=== PATIENT | female | born 1930 | race Caucasian/White ===

== ENCOUNTER 2017-12-04 19:50 | Inpatient (IN) ==
--- NOTE | 2017-12-04 19:58 | Emergency Department Note ---
Disposition Clinical Impression: Confusion, Renal insufficiency, Atrial fibrillation with RVR UTI (urinary tract infection) Qualifiers: Urinary tract infection type: acute cystitis Hematuria presence: without hematuria Qualified Code(s): N30.00 - Acute cystitis without hematuria Dementia Qualifiers: Dementia type: unspecified type Dementia behavioral disturbance: without behavioral disturbance Qualified Code(s): F03.90 - Unspecified dementia without behavioral disturbance Anemia Qualifiers: Anemia type: unspecified type Qualified Code(s): D64.9 - Anemia, unspecified Sepsis Qualifiers: Sepsis type: sepsis due to unspecified organism Qualified Code(s): A41.9 - Sepsis, unspecified organism Disposition: Admitted As Inpatient Condition: Fair Referrals: Tiera Rojas AGRICULTURAL SERVICES DIRECTOR [Primary Care Provider] - Forms: ED Satisfaction Letter Weakness HPI - General Chief complaint: ED Weakness Stated complaint: confused, weak, dizzy Time Seen by Provider: 12/04/17 19:56 Source: patient, EMS Mode of arrival: EMS Limitations: altered mental status, age Nursing Notes Reviewed: Yes Vital Signs Reviewed: Yes - History of Present Illness HPI Narrative: Patient is brought in by EMS with a report of some increased weakness and dizziness. There is concern that this could because of a urinary tract infection and she has had some similar symptoms. She arrives and has some confusion to place and date but is alert to person. She denies any frequency or burning of urination. She denies abdominal pain or abnormal bowel movements. She appears somewhat pale but denies bloody or black stools. She denies nausea or vomiting. She denies chest pain, palpitations or shortness of breath but does state she has had some nonproductive cough. She states she might of been having some headache and admits to a feeling of confusion. She has not had recent fall or injury. She is on anticoagulants per old record. She denies any difficulty with vision. Pt Subjective Complaint: generalized weakness/fatigue Onset (ago): unknown Location: generalized Pain Severity: mild Improves with: none Worsens with: none Context: history of similar Associated symptoms: Reports: confusion, headaches, loss of appetite. Denies: chest pain, dark stools, diaphoresis, dysuria, easy bruising, fever/chills, nausea/vomiting, myalgias, rash, shortness of breath, syncope - Related Data Home Medications Medication Instructions Recorded Confirmed Albuterol Sulfate [Albuterol 2.5 mg IH Q6HR 12/04/17 12/04/17 Inhaler] Apixaban [Eliquis] 5 mg PO BID 12/04/17 12/04/17 Aspirin [Lo-Dose Aspirin EC] 81 mg PO DAILY 12/04/17 12/04/17 Budesonide/Formoterol 160/4.5 2 puff IH BIDR 12/04/17 12/04/17 [Symbicort 160/4.5] Bumetanide [Bumetanide] 0.5 mg PO HS 12/04/17 12/04/17 Bumetanide [Bumex] 1 mg PO DAILY 12/04/17 12/04/17 Cholecalciferol (Vitamin D3) 2,000 mg PO DAILY 12/04/17 12/04/17 [Vitamin D3] Diltiazem CD (24hr) [Cardizem CD] 120 mg PO DAILY 12/04/17 12/04/17 Donepezil HCl [Aricept] 10 mg PO DAILY 12/04/17 12/04/17 Escitalopram [Lexapro] 20 mg PO DAILY 12/04/17 12/04/17 Ipratropium/Albuterol Neb [Duoneb] 3 mg QID 12/04/17 12/04/17 Levothyroxine Sodium [Levoxyl] 75 mcg PO DAILY 12/04/17 12/04/17 Metformin HCl [Fortamet] 500 mg PO BID 12/04/17 12/04/17 Oxybutynin Chloride [Ditropan Xl] 10 mg PO DAILY 12/04/17 12/04/17 Raloxifene [Evista] 60 mg PO DAILY 12/04/17 12/04/17 Simvastatin [Zocor] 40 mg PO DAILY 12/04/17 12/04/17 glipiZIDE [Glucotrol] 5 mg PO DAILY 12/04/17 12/04/17 Allergies Allergy/AdvReac Type Severity Reaction Status Date / Time Erythromycin Base Allergy Rash Verified 10/30/17 12:13 Penicillins Allergy Rash Verified 10/30/17 12:13 Sulfa (Sulfonamide Allergy Rash Verified 10/30/17 12:13 Antibiotics) All systems ED: reviewed and negative except as stated. Past Medical History - Past Medical History Attestation: Yes The following information was validated with the patient. Source: patient, old records reviewed, obtained from family, nursing notes reviewed Medical history: Reports: atrial fibrillation, cancer (Lung cancer), cardiomyopathy, COPD, dementia, diabetes, hyperlipidemia, renal disease Surgical history: Reports: cancer surgery (Left lower lobe cancer resection), cholecystectomy, hip replacement, hysterectomy, orthopedic, other (Bilateral knee replacement), other Psychiatric history: Reports: no psych history BARGEMAN history: Reports: no BARGEMAN history - Social History Smoking Status: Former smoker Smokeless Tobacco Status: No Alcohol use: Reports: none Drug use: Reports: none, unknown Physical Exam - General Limitations: altered mental status, age General appearance: alert, in no apparent distress, anxious - Head Head exam: atraumatic, normocephalic, normal inspection - Eye Eye exam: Present: normal appearance, PERRL, EOMI. Absent: conjunctival injection - ENT ENT exam: normal exam, normal oropharynx, mucous membranes moist - Neck Neck exam: Present: normal inspection, full ROM, trachea midline. Absent: meningismus, lymphadenopathy - Chest Chest inspection: Present: normal inspection, symmetric chest wall rise. Absent : tenderness - Respiratory Respiratory exam: Present: normal lung sounds bilaterally, other (Occasional cough.). Absent: respiratory distress, wheezes, prolonged expiratory phase - Cardiovascular Cardiovascular exam: Present: regular rate, normal rhythm, normal heart sounds. Absent: tachycardia, JVD - Abdominal Exam Abdominal exam: Present: soft, Non-Tender, normal bowel sounds. Absent: tenderness, distention, guarding, rebound, rigidity Abdominal tenderness: Absent: suprapubic - Extremities Exam Extremities exam: Present: normal inspection, full ROM, normal capillary refill. Absent: tenderness, pedal edema, calf tenderness - Expanded Lower Extremity Exam Neurovascular/Tendon exam: Present: normal capillary refill. Absent: motor deficit, sensory deficit, tendon deficit Gait: observed and normal - Back Exam Back exam: Present: normal inspection, full ROM. Absent: tenderness, CVA tenderness (R), CVA tenderness (L), vertebral tenderness - Neurological Exam Neurological exam: Present: alert. Absent: oriented X3 (Oriented to person), motor sensory deficit - Psychiatric Psychiatric exam: Present: normal affect, anxious - Skin Skin exam: Present: warm, dry, intact, pallor. Absent: rash, cyanosis, diaphoresis Course Course Narrative: 2100: Care is discussed with the family and Dr. Howell. Verbal orders are obtained for her observation is patient of hospital. Her fluids have been liberalized given her elevated lactic acid. She will continue on Rocephin. Patient's condition is currently stable. She has a heart rate remaining around 110, blood pressure 9200 systolic, afebrile and without dyspnea. She is not have rales or rhonchi and she has a regular tachycardic rhythm on auscultation. She maintains good capillary refill and pulses. She denies have any skin rash or breakdown. Vital Signs Temperature 99 F 12/04/17 20:09 Pulse Rate 90 12/04/17 20:09 Respiratory Rate 20 12/04/17 20:09 Blood Pressure 109/54 12/04/17 20:09 O2 Sat by Pulse Oximetry 95 12/04/17 20:09 Temperature 99 F 12/04/17 20:09 Pulse Rate 90 12/04/17 20:09 Respiratory Rate 20 12/04/17 20:09 Blood Pressure 109/54 12/04/17 20:09 O2 Sat by Pulse Oximetry 95 12/04/17 20:09 Oxygen Delivery Oxygen Delivery Nasal Cannula Weakness - Differential Diagnosis Differential Diagnosis: Likely: anemia, hypoglycemia, sepsis/infection, dehydration, medication effect, metabolic - Medical Records Medical records reviewed: Yes I reviewed the patient's medical records. - Lab Data Lab results reviewed: Yes I reviewed the patient's lab results. Result diagrams: 12/04/17 20:24 12/04/17 20:24 Lab Results 12/04/17 12/04/17 12/04/17 Range/Units 20:16 20:24 20:24 WBC 11.6 H (4.3-11.1) K/mcL RBC 3.52 L (3.82-4.97) M/mcL Hgb 7.5 L (11.5-15.4) g/dL Hct 25.9 L (35.3-44.9) % MCV 73.6 L (83.0-100.0) fL MCH 21.3 L (28.0-33.3) pg MCHC 29.0 L (31.6-35.5) g/dL RDW 17.6 H (11.5-14.5) % Plt Count 196 (140-400) K/mcL MPV 9.2 L (9.4-12.4) fL Immature Gran % 0.5 (0-4) % Seg Neutrophils % 88.4 % Lymphocytes % 5.3 % Monocytes % 4.8 % Eosinophils % 0.7 % Basophils % 0.3 % Neutrophils # 10.3 H (1.6-8.9) K/mcL Lymphocytes # 0.6 (0.6-4.6) K/mcL Monocytes # 0.6 (0.0-1.3) K/mcL Eosinophils # 0.1 (0.0-0.6) K/mcL Basophils # 0.0 (0.0-0.2) K/mcL Sodium 137 (136-145) mEq/L Potassium 4.1 (3.5-5.1) mEq/L Chloride 99 (98-107) mEq/L Carbon Dioxide 26 (23-29) mEq/L BUN 25 H (8-23) mg/dL Creatinine 1.55 H (0.60-1.20) mg/dL Est GFR ( Amer) 39 L (> 60) Est GFR (Non-Af Amer) 32 L (> 60) BUN/Creatinine Ratio 16 (6-26) Glucose 187 H (70-105) mg/dL Calculated Osmolality 293 (280-300) Lactic Acid (0.5-2.2) mmol/L Calcium 9.2 (8.6-10.3) mg/dL Total Bilirubin 0.4 (0.3-1.0) mg/dL AST 10 L (13-39) Units/L ALT 4 L (7-52) Units/L Alkaline Phosphatase 41 (34-104) Units/L Troponin I < 0.03 (< 0.04) ng/mL Serum Total Protein 6.2 L (6.4-8.9) g/dL Albumin 3.4 L (3.5-5.7) g/dL Globulin 2.8 (2.4-3.5) g/dL Albumin/Globulin Ratio 1.2 (1.1-2.2) Urine Color Yellow (Yellow) Urine Clarity Cloudy A (Clear) Urine pH 5.5 (5.0-8.0) pH Units Ur Specific [place] 1.020 (1.010-1.025) Urine Protein 100 H (Neg-Trace) mg/dL Urine Glucose (UA) Normal (Normal) mg/dL Urine Ketones Negative (Negative) mg/dL Urine Blood Moderate H (Negative) Urine Nitrite Negative (Negative) Urine Bilirubin Negative (Negative) Urine Urobilinogen Normal (Normal) mg/dL Ur Leukocyte Esterase Large H (Negative) Urine Microscopic RBC 5-15 H (0-3) per hpf Urine Microscopic WBC TNTC H (0-3) per hpf Urine Bacteria Few (None-Few) per hpf Ur Culture Indicated? YES A (NO) 12/04/17 Range/Units 20:24 WBC (4.3-11.1) K/mcL RBC (3.82-4.97) M/mcL Hgb (11.5-15.4) g/dL Hct (35.3-44.9) % MCV (83.0-100.0) fL MCH (28.0-33.3) pg MCHC (31.6-35.5) g/dL RDW (11.5-14.5) % Plt Count (140-400) K/mcL MPV (9.4-12.4) fL Immature Gran % (0-4) % Seg Neutrophils % % Lymphocytes % % Monocytes % % Eosinophils % % Basophils % % Neutrophils # (1.6-8.9) K/mcL Lymphocytes # (0.6-4.6) K/mcL Monocytes # (0.0-1.3) K/mcL Eosinophils # (0.0-0.6) K/mcL Basophils # (0.0-0.2) K/mcL Sodium (136-145) mEq/L Potassium (3.5-5.1) mEq/L Chloride (98-107) mEq/L Carbon Dioxide (23-29) mEq/L BUN (8-23) mg/dL Creatinine (0.60-1.20) mg/dL Est GFR ( Amer) (> 60) Est GFR (Non-Af Amer) (> 60) BUN/Creatinine Ratio (6-26) Glucose (70-105) mg/dL Calculated Osmolality (280-300) Lactic Acid 5.5 H* (0.5-2.2) mmol/L Calcium (8.6-10.3) mg/dL Total Bilirubin (0.3-1.0) mg/dL AST (13-39) Units/L ALT (7-52) Units/L Alkaline Phosphatase (34-104) Units/L Troponin I (< 0.04) ng/mL Serum Total Protein (6.4-8.9) g/dL Albumin (3.5-5.7) g/dL Globulin (2.4-3.5) g/dL Albumin/Globulin Ratio (1.1-2.2) Urine Color (Yellow) Urine Clarity (Clear) Urine pH (5.0-8.0) pH Units Ur Specific [place] (1.010-1.025) Urine Protein (Neg-Trace) mg/dL Urine Glucose (UA) (Normal) mg/dL Urine Ketones (Negative) mg/dL Urine Blood (Negative) Urine Nitrite (Negative) Urine Bilirubin (Negative) Urine Urobilinogen (Normal) mg/dL Ur Leukocyte Esterase (Negative) Urine Microscopic RBC (0-3) per hpf Urine Microscopic WBC (0-3) per hpf Urine Bacteria (None-Few) per hpf Ur Culture Indicated? (NO) - Radiology Data Radiology results reviewed: Yes I reviewed the patient's radiology results. Single view chest x-rays performed. This does not demonstrate acute infiltrate , effusion, pneumothorax or heart failure. She has stable volume loss and scarring of the left lung in comparison to prior imaging. No acute processes seen. This is on my interpretation. CT head is performed. This is reviewed on bone and soft tissue windows. There is no evidence for acute intracranial bleed, shift, mass or edema. Patient has cerebral atrophy present. Mastoids and sinuses appear normal. There is no fracture evident. This is on my interpretation. Impressions Chest X-Ray 12/04/17 19:56 IMPRESSION: 1. No acute process identified. 2. Stable volume loss and linear density within the left lung likely secondary to postsurgical and radiation change. D/ / Tom Pang MD / Tom Pang MD Interpreting Provider: Tom Pang MD Head CT 12/04/17 19:57 IMPRESSION: No acute intracranial abnormality. D/ / Dalton Donnelly MD / Dalton Donnelly MD Interpreting Provider: Dalton Donnelly MD - EKG Data EKG shows normal: axis, intervals, QRS complexes Rate: tachycardia (128) Rhythm: A.Fib ST segment depression in: v4, v5, v6 T wave inversions noted in: I, aVL Interpretation: nonspecific ST-T wave changes, other
[2017-12-04] MEDS ORDERED: 0.9 % Sodium Chloride 500 ML IVC ONE ×3 (20:25→23:16)
[2017-12-04 20:29] LABS: Bilirubin,Urine Negative (Negative); Blood,Urine Moderate (Negative); Clarity,Urine Cloudy (Clear); Color,Urine Yellow (Yellow); Glucose,Urine (UA) Normal (Normal); Ketones,Urine Negative (Negative); Leukocyte Esterase,Urine Large (Negative); Nitrite,Urine Negative (Negative); PH,Urine 5.5 pH Units (5.0-8.0); Protein,Urine 100 mg/dL (Neg-Trace); Urobilinogen,Urine Normal (Normal)
[2017-12-04] MEDS ORDERED: 0.9 % Sodium Chloride 1,000 ML IVC SCH ×2 (20:30→23:16)
[2017-12-04 20:36] LABS: Basophils % 0.3 %; Eosinophils # 0.1 K/mcL (0.0-0.6); Eosinophils % 0.7 %; Hematocrit 25.9 % (35.3-44.9); Hemoglobin 7.5 g/dL (11.5-15.4); Immature Granulocytes % 0.5 % (0-4); Lymphocytes # 0.6 K/mcL (0.6-4.6); Lymphocytes % 5.3 %; Mean Corpuscular Hemoglobin 21.3 pg (28.0-33.3); Mean Corpuscular Volume 73.6 fL (83.0-100.0); Mean Platelet Volume 9.2 fL (9.4-12.4); Monocytes # 0.6 K/mcL (0.0-1.3); Monocytes % 4.8 %; Platelet Count 196 K/mcL (140-400); Red Blood Count 3.52 M/mcL (3.82-4.97); Red Cell Distribution Width 17.6 % (11.5-14.5); Segmented Neutrophils % 88.4 %
[2017-12-04 20:36] LABS: Bacteria,Urine Few per hpf (None-Few); WBC,Urine TNTC per hpf (0-3)
[2017-12-04] MEDS ORDERED: cefTRIAXone 2,000 MG in 0.9 % Sodium Chloride Mini Bag 100 ML IVPB ONE (20:39)
[2017-12-04 20:46] LABS: Neutrophils # 10.3 K/mcL (1.6-8.9)
[2017-12-04 20:55] LABS: Alanine Aminotransferase 4 Units/L (7-52); Albumin 3.4 g/dL (3.5-5.7); Albumin/Globulin Ratio 1.2 (1.1-2.2); Alkaline Phosphatase 41 Units/L (34-104); Aspartate Amino Transferase 10 Units/L (13-39); BUN/Creatinine Ratio 16 (6-26); Bilirubin,Total 0.4 mg/dL (0.3-1.0); Blood Urea Nitrogen 25 mg/dL (8-23); Calcium 9.2 mg/dL (8.6-10.3); Carbon Dioxide 26 mEq/L (23-29); Chloride 99 mEq/L (98-107); Globulin 2.8 g/dL (2.4-3.5); Glucose 187 mg/dL (70-105); Osmolality,Calculated 293 (280-300); Potassium 4.1 mEq/L (3.5-5.1); Sodium 137 mEq/L (136-145); Total Protein 6.2 g/dL (6.4-8.9); Troponin I < 0.03 ng/mL (< 0.04); eGFR For African Americans 39 (> 60); eGFR For Non-African Americans 32 (> 60)
[2017-12-04] MEDS ORDERED: 0.9 % Sodium Chloride 1,000 ML IVC ONE (21:06)
[2017-12-04] MEDS ORDERED: Ipratropium/Albuterol Neb 3 ML IH PRN (23:16)
[2017-12-04] MEDS ORDERED: Dextrose Gel 15 GM/37.5 ML TUBE PO PRN ×2 (23:16)
[2017-12-04] MEDS ORDERED: D5% in Water 1,000 ML IVC PRN (23:16)
[2017-12-04] MEDS ORDERED: *HR* Dextrose 50 % in Water (Syg) 50 ML SYRINGE IVP PRN (23:16)
[2017-12-04] MEDS ORDERED: cefTRIAXone 2,000 MG in Water for inj. (sterile) 20 ML 20 ML IVP SCH (23:16)
[2017-12-04] MEDS ORDERED: Naloxone 0.4 MG/ML INJ IVP PRN (23:16)
[2017-12-05] MEDS: Insulin LISPRO 300 UNITS/3 ML VIAL SQ SCH ×3 (07:22→17:00)
[2017-12-05] MEDS ORDERED: Aspirin Enteric Coated 81 MG Tablet PO SCH (09:00)
[2017-12-05] MEDS ORDERED: cefTRIAXone 2,000 MG in Water for inj. (sterile) 20 ML 20 ML IVP SCH (09:00)
[2017-12-05] MEDS ORDERED: Diltiazem CD (24hr) 120 MG CAPSULE PO SCH (09:00)
[2017-12-05] MEDS ORDERED: *HR* Metformin 500 MG TABLET PO SCH (09:00)
[2017-12-05] MEDS: Azithromycin 500 MG in D5% in Water 250 ML IVPB SCH (09:10)
[2017-12-05] MEDS: Bumetanide 1 MG TABLET PO SCH (09:10)
[2017-12-05] MEDS: Apixaban 5 MG TABLET PO SCH ×2 (09:10→20:41)
[2017-12-05] MEDS: Budesonide/Formoterol 160/4.5 MDI IH SCH ×2 (10:53→21:26)
--- NOTE | 2017-12-05 11:38 | Internal Med History&Physical ---
Date of Encounter: 12/05/17 Time of Encounter: 11:10 Assessment and Plan (1) UTI (urinary tract infection) Current visit: Yes Status: Acute She has been started on Rocephin and Zithromax. Will continue these and add lactobacillus. Urine culture has been ordered. Qualifiers: Urinary tract infection type: acute cystitis Hematuria presence: without hematuria Qualified Code(s): N30.00 - Acute cystitis without hematuria (2) Atrial fibrillation with RVR Current visit: Yes Status: Acute Continue Eliquis but hold Cardizem secondary to borderline hypotension. Recheck CBC and transfuse if hemoglobin less than 7. (3) Dementia Current visit: Yes Status: Chronic Will do MMSE. Qualifiers: Dementia type: unspecified type Dementia behavioral disturbance: without behavioral disturbance Qualified Code(s): F03.90 - Unspecified dementia without behavioral disturbance (4) Anemia Current visit: Yes Status: Acute Suspect iron deficiency from blood loss secondary to aspirin and Eliquis use. Will hold aspirin and order anemia testing. Qualifiers: Anemia type: unspecified type Qualified Code(s): D64.9 - Anemia, unspecified (5) Non-insulin dependent type 2 diabetes mellitus Current visit: No Status: Chronic Hemoglobin A1c was 7.4% on 07/13/2017. Continue Glucotrol and Glucophage. Monitor Accu-Cheks with SSI. (6) HTN (hypertension) Current visit: No Status: Chronic Blood pressure borderline low. Will hold Cardizem and Bumex and give IV fluids. Qualifiers: Hypertension type: essential hypertension Qualified Code(s): I10 - Essential (primary) hypertension (7) CKD (chronic kidney disease) stage 3, GFR 30-59 ml/min Current visit: Yes Status: Acute Will decrease Bumex and give IV fluids. Monitor renal indices. (8) CHF (congestive heart failure) Current visit: Yes Status: Chronic Continue Bumex but at reduced dose secondary to azotemia. Qualifiers: Heart failure type: diastolic Heart failure chronicity: chronic Qualified Code(s): I50.32 - Chronic diastolic (congestive) heart failure Internal Medicine - H&P: HPI Chief complaint: Weakness, confusion Admitted From: Emergency Dept Plans for Post Hospital Care: Home History of present illness: Ms. Benites is a 87 year old female who was brought to emergency room by squad after family reported increased weakness and dizziness. She could not give significant history because of dementia. She was evaluated and felt to have UTI , significant anemia, and sepsis. She was admitted to [facility] floor for ongoing care needs. She cannot give additional reliable history at this time. Past Med Surg Social Fam HX - Past Medical History Medical history: atrial fibrillation, cancer, cardiomyopathy, COPD, dementia, diabetes, hyperlipidemia, renal disease Psychiatric history: no psych history - Past Surgical History Surgical History: cancer surgery, cholecystectomy, hip replacement, hysterectomy , orthopedic, other, other - Social History Smoking Status: Former smoker Smokeless Tobacco Status: No Alcohol use: none Drug use: none, unknown - Family History Father Adopted: Yes Mother Adopted: Yes Brother Adopted: Yes Sister Adopted: Yes Internal Medicine - H&P: Meds Albuterol Sulfate [Albuterol Inhaler] 2.5 mg IH Q6HR 12/04/17 [History] Albuterol Sulfate [Proair Hfa] 1 puff IH Q4H PRN 12/04/17 [History] Apixaban [Eliquis] 5 mg PO BID 12/04/17 [History] Aspirin [Lo-Dose Aspirin EC] 81 mg PO DAILY 12/04/17 [History] Budesonide/Formoterol 160/4.5 [Symbicort 160/4.5] 2 puff IH BID 12/04/17 [ History] Bumetanide [Bumetanide] 0.5 mg PO HS 12/04/17 [History] Bumetanide [Bumex] 1 mg PO DAILY 12/04/17 [History] Cholecalciferol (Vitamin D3) [Vitamin D3] 2,000 mg PO DAILY 12/04/17 [History] Diltiazem CD (24hr) [Cardizem CD] 120 mg PO DAILY 12/04/17 [History] Donepezil HCl [Aricept] 10 mg PO DAILY 12/04/17 [History] Escitalopram [Lexapro] 20 mg PO DAILY 12/04/17 [History] Ipratropium/Albuterol Neb [Duoneb] 3 mg IH QID PRN 12/04/17 [History] Levothyroxine Sodium [Levoxyl] 75 mcg PO DAILY 12/04/17 [History] Metformin HCl [Fortamet] 500 mg PO BID 12/04/17 [History] Oxybutynin Chloride [Ditropan Xl] 10 mg PO DAILY 12/04/17 [History] Raloxifene [Evista] 60 mg PO DAILY 12/04/17 [History] Simvastatin [Zocor] 40 mg PO DAILY 12/04/17 [History] Spiriva Respimat 1.25 mcg IH DAILY 12/04/17 [History] glipiZIDE [Glucotrol] 5 mg PO DAILY 12/04/17 [History] 3 Allergy/AdvReac Type Severity Reaction Status Date / Time Erythromycin Base Allergy Rash Verified 10/30/17 12:13 Penicillins Allergy Rash Verified 10/30/17 12:13 Sulfa (Sulfonamide Allergy Rash Verified 10/30/17 12:13 Antibiotics) All Systems PM: A 10-system review of systems was performed and is negative for pertinent findings except as documented above in the HPI. Review of systems: (Review of systems obtained from available records Gen.: Her weight has been stable at approximately 80 kg for several months Cardiovascular: She has history of hypertension and paroxysmal atrial fibrillation. There is no known [place] heart failure DVT or pulmonary embolus. She had an echocardiogram 04/21/2017 which showed LVEF of 55%. There was mild to moderate tricuspid regurgitation but no other significant valvular abnormalities. She is taking Eliquis for CVA prophylaxis for atrial fibrillation. Respiratory: She smoked from age [age] up to 2 packs per day. She has a diagnosis of COPD. 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 She had left lower lobe resection approximate 2009 for malignancy followed by XRT and chemotherapy. She is presumed cancer free. GI: She had colitis requiring hospitalization March 2017. There is no known disorders of liver gallbladder or exocrine pancreas : She has had UTIs in the past. She has chronic kidney disease and has followed with a arch support technician in the past. Neurologic: She has dementia. There are no known large distribution strokes or seizures. Endocrine: She was diagnosed with DM 2 approximately 2006. She has hypothyroidism and hyperlipidemia. Hematology/oncology: She has had lung cancer as per above. She is had anemia noted on labs since September 2017. There are no other internal malignancies or blood disorders. 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 She does not have known gout. - Constitutional Vitals: Temp Pulse Resp BP Pulse Ox 98.2 F 73 17 92/56 95 12/05/17 10:00 12/05/17 10:00 12/05/17 10:00 12/05/17 10:00 12/05/17 10:00 Exam: Gen.: She is a well-developed well-nourished female resting comfortably in bed who appears in no acute distress at present time HEENT: Head is atraumatic and normal cephalic. Eyes: EOMI. There is no scleral icterus. Mouth: Mucosa is moist. Neck: Supple and nontender. There is no thyromegaly or adenopathy noted. Heart: Irregularly irregular with rate approximately 112/m. Lungs: She has rhonchi bilaterally. No wheezing is heard. Breath sounds are symmetric. Abdomen: Soft and nontender. No masses or guarding are noted. Extremities: There is no cyanosis edema or clubbing noted. Dorsalis pedis and posttibial pulses are trace palpable bilaterally. Neurologic: Mental status: She is able to answer simple questions with short answers. She is not conversational. Cranial nerves: Smile is symmetric. Forehead wrinkles bilaterally. Tongue protrudes midline. EOMI. Motor: There is no pronator drift. She is able to lift both legs off the bed. Cerebellar: Finger to nose is intact bilaterally. Skin: Warm and dry Internal Med - H&P Results - Labs CBC & Chem 7: 12/04/17 20:24 12/04/17 20:24
[2017-12-05] MEDS: *HR* GlipiZIDE 5 MG TABLET PO SCH (12:59)
[2017-12-05 13:05] LABS: Basophils % 0.3 %; Eosinophils # 0.4 K/mcL (0.0-0.6); Eosinophils % 5.3 %; Hematocrit 22.7 % (35.3-44.9); Hemoglobin 6.6 g/dL (11.5-15.4); Immature Granulocytes % 0.5 % (0-4); Lymphocytes # 1.5 K/mcL (0.6-4.6); Lymphocytes % 22.7 %; Mean Corpuscular HGB Conc 29.1 g/dL (31.6-35.5); Mean Corpuscular Hemoglobin 21.6 pg (28.0-33.3); Mean Corpuscular Volume 74.4 fL (83.0-100.0); Mean Platelet Volume 10.1 fL (9.4-12.4); Monocytes # 0.4 K/mcL (0.0-1.3); Monocytes % 6.1 %; Neutrophils # 4.3 K/mcL (1.6-8.9); Platelet Count 169 K/mcL (140-400); Red Blood Count 3.05 M/mcL (3.82-4.97); Red Cell Distribution Width 17.8 % (11.5-14.5); Segmented Neutrophils % 65.1 %
--- NOTE | 2017-12-05 16:19 | Electrocardiograph Report ---
[address] [place], [place] [address] Test Date: 2017-12-04 Pat Name: Bianca Benites Department: [id number] Room: [facility] Gender: F Manager [employer]: [id number] : 1930 Requested By: Julio Cesar Adair Order Number: [id number] Reading MD: Mariam Syed Measurements Intervals [place] Rate: 128 P: TX: 0 QRS: -58 QRSD: 110 T: 108 QT: 336 QTc: 412 Interpretive Statements ATRIAL FIBRILLATION WITH RAPID VENTRICULAR RESPONSE LEFT ANTERIOR FASCICULAR BLOCK ST DEVIATION AND MODERATE T-WAVE ABNORMALITY, CONSIDER LATERAL ISCHEMIA Electronically Signed On 12-05-2017 16:17:59 EDT by Mariam Syed
[2017-12-05] MEDS: Lactobacillus 1 EACH CAP.SPRINK PO SCH (20:41)
[2017-12-05] MEDS: cefTRIAXone 2,000 MG in Water for inj. (sterile) 20 ML 20 ML IVP SCH (20:42)
[2017-12-05] MEDS ORDERED: Bumetanide 1 MG TABLET PO SCH (21:00)
[2017-12-06 05:43] LABS: Basophils % 0.4 %; Eosinophils # 0.6 K/mcL (0.0-0.6); Eosinophils % 8.8 %; Hematocrit 24.5 % (35.3-44.9); Immature Granulocytes % 0.3 % (0-4); Lymphocytes # 1.6 K/mcL (0.6-4.6); Lymphocytes % 23.3 %; Mean Corpuscular HGB Conc 28.6 g/dL (31.6-35.5); Mean Corpuscular Hemoglobin 21.1 pg (28.0-33.3); Mean Platelet Volume 9.7 fL (9.4-12.4); Monocytes # 0.5 K/mcL (0.0-1.3); Monocytes % 6.5 %; Neutrophils # 4.2 K/mcL (1.6-8.9); Platelet Count 181 K/mcL (140-400); Red Blood Count 3.31 M/mcL (3.82-4.97); Red Cell Distribution Width 17.5 % (11.5-14.5); Segmented Neutrophils % 60.7 %
[2017-12-06 06:42] LABS: Hypochromasia Present (Not Present); Platelet Estimate Normal (Normal)
[2017-12-06] MEDS: Azithromycin 500 MG in D5% in Water 250 ML IVPB SCH (08:23)
[2017-12-06] MEDS: Bumetanide 1 MG TABLET PO SCH (08:23)
[2017-12-06] MEDS: Lactobacillus 1 EACH CAP.SPRINK PO SCH ×2 (08:23→21:19)
[2017-12-06] MEDS: *HR* GlipiZIDE 5 MG TABLET PO SCH (08:23)
[2017-12-06] MEDS: Apixaban 5 MG TABLET PO SCH ×2 (08:28→21:21)
[2017-12-06] MEDS: Insulin LISPRO 300 UNITS/3 ML VIAL SQ SCH ×3 (08:30→17:23)
[2017-12-06 09:10] LABS: % Iron Saturation 3 % (15-50); Ferritin 15 ng/ml (10-120); Iron 10 mcg/dL (50-170); Transferrin 253 mg/dL (203-362)
[2017-12-06 09:36] LABS: Folate 19.4 ng/mL (3.0-16.0)
[2017-12-06] MEDS: Budesonide/Formoterol 160/4.5 MDI IH SCH ×2 (09:42→21:43)
--- NOTE | 2017-12-06 10:14 | Internal Med Progress Note ---
Date of Encounter: 12/06/17 Time of Encounter: 10:05 - Assessment and plan (1) UTI (urinary tract infection) Current Visit: Yes Status: Acute Assessment and plan: December 06. Urine culture report not back. Continue empiric Rocephin and Zithromax with lactobacillus. Qualifiers: Urinary tract infection type: acute cystitis Hematuria presence: without hematuria Qualified Code(s): N30.00 - Acute cystitis without hematuria (2) Atrial fibrillation with RVR Current Visit: Yes Status: Acute Assessment and plan: December 06. Continue Eliquis. Will order blood transfusion to increase volume and slow RVR. (3) Dementia Current Visit: Yes Status: Chronic Assessment and plan: December 06. MMSE not yet done. Qualifiers: Dementia type: unspecified type Dementia behavioral disturbance: without behavioral disturbance Qualified Code(s): F03.90 - Unspecified dementia without behavioral disturbance (4) Anemia Current Visit: Yes Status: Acute Assessment and plan: December 06. Anemia testing showed iron 10, transferrin saturation 3%, transferrin 253, ferritin 15, B12 188, and folate 19.4. Will give B12 IM today and start oral supplement. Will order iron infusion. Qualifiers: Anemia type: unspecified type Qualified Code(s): D64.9 - Anemia, unspecified (5) Non-insulin dependent type 2 diabetes mellitus Current Visit: No Status: Chronic Assessment and plan: December 06. Hemoglobin A1c was 7.4% on 07/13/2017. Continue Glucotrol. Glucophage was discontinued because of renal function. Do Accu-Cheks with SSI. (6) HTN (hypertension) Current Visit: No Status: Chronic Assessment and plan: December 06. Continue to hold Cardizem and give IV fluids. Qualifiers: Hypertension type: essential hypertension Qualified Code(s): I10 - Essential (primary) hypertension (7) CKD (chronic kidney disease) stage 3, GFR 30-59 ml/min Current Visit: Yes Status: Acute Assessment and plan: December 06. Continue IV fluids and monitor renal indices. (8) CHF (congestive heart failure) Current Visit: Yes Status: Chronic Assessment and plan: December 06. Continue lower dose Bumex and monitor Qualifiers: Heart failure type: diastolic Heart failure chronicity: chronic Qualified Code(s): I50.32 - Chronic diastolic (congestive) heart failure - Subjective Interval history: May 17. She has no new complaints. - Constitutional Vitals: Temp Pulse Resp BP Pulse Ox 98 F 65 16 90/61 95 12/06/17 06:23 12/06/17 06:23 12/06/17 09:46 12/06/17 06:23 12/06/17 09:46 Exam: She is resting comfortably in bed and appears in no acute distress. Her affect is cheerful. Heart is irregularly irregular with rate approximately 100/m. Lungs are clear anteriorly. Extremities show no pitting edema. I reviewed her medications. I discussed pertinent lab results with her. Internal Medicine: Result - Labs CBC & Chem 7: 12/06/17 05:26 12/04/17 20:24 Labs: Short CBC 12/05/17 12/06/17 Range/Units 12:55 05:26 WBC 6.6 7.0 (4.3-11.1) K/mcL Hgb 6.6 L 7.0 L (11.5-15.4) g/dL Hct 22.7 L 24.5 L (35.3-44.9) % Plt Count 169 181 (140-400) K/mcL Neutrophils # 4.3 4.2 (1.6-8.9) K/mcL Consult Discharge Plan - Plan Referrals: Tiera Rojas, DO ALL OPERATOR [Primary Care Provider] - 1 week
[2017-12-06] MEDS ORDERED: Iron Dextran Complex 1,500 MG in 0.9 % Sodium Chloride 500 ML IVPB ONE (10:18)
[2017-12-06] MEDS ORDERED: Cyanocobalamin (B-12) 1,000 MCG/ML VIAL IM ONE ×2 (10:19→17:30)
[2017-12-06] MEDS ORDERED: Iron Sucrose Complex 400 MG in 0.9 % Sodium Chloride 250 ML IVPB ONE (10:53)
[2017-12-06] MEDS: cefTRIAXone 2,000 MG in Water for inj. (sterile) 20 ML 20 ML IVP SCH (21:17)
[2017-12-07 07:47] LABS: Basophils % 0.7 %; Eosinophils # 0.6 K/mcL (0.0-0.6); Eosinophils % 10.8 %; Hematocrit 26.3 % (35.3-44.9); Hemoglobin 7.6 g/dL (11.5-15.4); Immature Granulocytes % 0.2 % (0-4); Lymphocytes # 1.2 K/mcL (0.6-4.6); Lymphocytes % 21.2 %; Mean Corpuscular HGB Conc 28.9 g/dL (31.6-35.5); Mean Corpuscular Hemoglobin 22.3 pg (28.0-33.3); Mean Corpuscular Volume 77.1 fL (83.0-100.0); Mean Platelet Volume 9.6 fL (9.4-12.4); Monocytes # 0.5 K/mcL (0.0-1.3); Monocytes % 8.2 %; Neutrophils # 3.4 K/mcL (1.6-8.9); Platelet Count 152 K/mcL (140-400); Red Blood Count 3.41 M/mcL (3.82-4.97); Red Cell Distribution Width 18.4 % (11.5-14.5); Segmented Neutrophils % 58.9 %
[2017-12-07 07:55] LABS: BUN/Creatinine Ratio 18 (6-26); Blood Urea Nitrogen 15 mg/dL (8-23); Calcium 8.5 mg/dL (8.6-10.3); Carbon Dioxide 31 mEq/L (23-29); Chloride 106 mEq/L (98-107); Chol/HDL Ratio 2.5 (0-4.9); Cholesterol 101 mg/dL (< 200); Glucose 112 mg/dL (70-105); HDL Cholesterol 40 mg/dL (40-59); LDL Cholesterol,Calculated 46 mg/dL (0-99); Osmolality,Calculated 292 (280-300); Sodium 140 mEq/L (136-145); Triglycerides 75 mg/dL (< 150); eGFR For African Americans > 60 (> 60); eGFR For Non-African Americans > 60 (> 60)
[2017-12-07] MEDS ORDERED: *HR* GlipiZIDE 5 MG TABLET PO SCH (08:00)
[2017-12-07] MEDS: Bumetanide 1 MG TABLET PO SCH (08:32)
[2017-12-07] MEDS: Lactobacillus 1 EACH CAP.SPRINK PO SCH (08:32)
[2017-12-07] MEDS: Insulin LISPRO 300 UNITS/3 ML VIAL SQ SCH (08:32)
[2017-12-07] MEDS: Apixaban 5 MG TABLET PO SCH (08:32)
[2017-12-07 08:33] LABS: Anisocytosis 1+ (Not Present); Hypochromasia Present (Not Present); Microcytosis Present (Not Present); Polychromasia 1+ (Not Present)
[2017-12-07] MEDS: Azithromycin 500 MG in D5% in Water 250 ML IVPB SCH (08:33)
--- NOTE | 2017-12-07 10:03 | Internal Med Progress Note ---
Date of Encounter: 12/07/17 Time of Encounter: 09:55 - Assessment and plan (1) UTI (urinary tract infection) Current Visit: Yes Status: Acute Assessment and plan: December 06. Urine culture report not back. Continue empiric Rocephin and Zithromax with lactobacillus. December 07. Final culture and sensitivity report reviewed. Continue Rocephin with lactobacillus. Discontinue Zithromax. Qualifiers: Urinary tract infection type: acute cystitis Hematuria presence: without hematuria Qualified Code(s): N30.00 - Acute cystitis without hematuria (2) Atrial fibrillation with RVR Current Visit: Yes Status: Acute Assessment and plan: December 06. Continue Eliquis. Will order blood transfusion to increase volume and slow RVR. December 07. Ventricular rate now controlled after IV fluids and blood transfusion. Continue Eliquis. (3) Dementia Current Visit: Yes Status: Chronic Assessment and plan: December 06. MMSE not yet done. December 07. MMSE score of 4/30. Continue Aricept. B12 injection given after B12 level returned low at 188. Will start oral B12 supplement. Qualifiers: Dementia type: unspecified type Dementia behavioral disturbance: without behavioral disturbance Qualified Code(s): F03.90 - Unspecified dementia without behavioral disturbance (4) Anemia Current Visit: Yes Status: Acute Assessment and plan: December 06. Anemia testing showed iron 10, transferrin saturation 3%, transferrin 253, ferritin 15, B12 188, and folate 19.4. Will give B12 IM today and start oral supplement. Will order iron infusion. December 07. B12 injection given. Will start oral B12 supplement. IV iron sucrose given. Hemoglobin improved to 7.6 today after 1 unit transfused. Qualifiers: Anemia type: unspecified type Qualified Code(s): D64.9 - Anemia, unspecified (5) Non-insulin dependent type 2 diabetes mellitus Current Visit: No Status: Chronic Assessment and plan: December 06. Hemoglobin A1c was 7.4% on 07/13/2017. Continue Glucotrol. Glucophage was discontinued because of renal function. Do Accu-Cheks with SSI. December 07. Blood sugar satisfactory. Continue Glucotrol and Accu-Cheks with SSI. (6) HTN (hypertension) Current Visit: No Status: Chronic Assessment and plan: December 06. Continue to hold Cardizem and give IV fluids. December 07. Stable. Remain off Cardizem. We will discontinue IV fluids. Qualifiers: Hypertension type: essential hypertension Qualified Code(s): I10 - Essential (primary) hypertension (7) CKD (chronic kidney disease) stage 3, GFR 30-59 ml/min Current Visit: Yes Status: Acute Assessment and plan: December 06. Continue IV fluids and monitor renal indices. December 07. Improved. Will discontinue IV fluids. (8) CHF (congestive heart failure) Current Visit: Yes Status: Chronic Assessment and plan: December 06. Continue lower dose Bumex and monitor December 07. Stable. Continue present regimen. Qualifiers: Heart failure type: diastolic Heart failure chronicity: chronic Qualified Code(s): I50.32 - Chronic diastolic (congestive) heart failure (9) Weakness Current Visit: Yes Status: Acute Assessment and plan: December 07. Will order PT and OT evaluation. - Subjective Interval history: December 06. She has no new complaints. December 07. She has no new complaints. - Constitutional Vitals: Temp Pulse Resp BP Pulse Ox 97.6 F 67 19 101/68 97 12/07/17 06:42 12/07/17 06:42 12/07/17 06:42 12/07/17 06:42 12/07/17 06:42 Exam: She is resting comfortably in bed and appears in no acute distress. Her affect is bright and cheerful. I reviewed her medications. I discussed pertinent lab results with patient and her son. Internal Medicine: Result - Labs CBC & Chem 7: 12/07/17 07:29 12/07/17 07:29 Labs: Short CBC 12/07/17 Range/Units 07:29 WBC 5.8 (4.3-11.1) K/mcL Hgb 7.6 L (11.5-15.4) g/dL Hct 26.3 L (35.3-44.9) % Plt Count 152 (140-400) K/mcL Neutrophils # 3.4 (1.6-8.9) K/mcL BMP 12/07/17 07:29 Sodium 140 Potassium 4.0 Chloride 106 Carbon Dioxide 31 H BUN 15 Creatinine 0.82 Glucose 112 H Calcium 8.5 L Consult Discharge Plan - Plan Referrals: Tiera Rojas, ENGINEERING FACULTY [Primary Care Provider] - 1 week
[2017-12-07] MEDS: Budesonide/Formoterol 160/4.5 MDI IH SCH (10:11)
--- NOTE | 2017-12-07 14:05 | Discharge Summary ---
Date of Encounter: 12/07/17 Time of Encounter: 10:10 - Discharge Diagnosis (1) UTI (urinary tract infection) Priority: Primary Status: Acute Qualifiers: Urinary tract infection type: acute cystitis Hematuria presence: without hematuria Qualified Code(s): N30.00 - Acute cystitis without hematuria (2) Atrial fibrillation with RVR Priority: Secondary Status: Acute (3) Dementia Priority: Secondary Status: Chronic Qualifiers: Dementia type: unspecified type Dementia behavioral disturbance: without behavioral disturbance Qualified Code(s): F03.90 - Unspecified dementia without behavioral disturbance (4) Anemia Priority: Secondary Status: Acute Qualifiers: Anemia type: unspecified type Qualified Code(s): D64.9 - Anemia, unspecified (5) Non-insulin dependent type 2 diabetes mellitus Priority: Secondary Status: Chronic (6) HTN (hypertension) Priority: Secondary Status: Chronic Qualifiers: Hypertension type: essential hypertension Qualified Code(s): I10 - Essential (primary) hypertension (7) CKD (chronic kidney disease) stage 3, GFR 30-59 ml/min Priority: Secondary Status: Acute (8) CHF (congestive heart failure) Priority: Secondary Status: Chronic Qualifiers: Heart failure type: diastolic Heart failure chronicity: chronic Qualified Code(s): I50.32 - Chronic diastolic (congestive) heart failure (9) Weakness Priority: Secondary Status: Acute Hospital course: Ms. Benites is a 87 year old female who was brought to emergency room by squad after family reported increased weakness and dizziness. She could not give significant history because of dementia. She was evaluated and felt to have UTI , significant anemia, and sepsis. She was admitted to [facility] floor for ongoing care needs. Initial orders were written by the emergency room physician. I saw her on December 05 and performed the history and physical. She was started empirically on Rocephin and Zithromax for UTI. Lactobacillus was also given. Urine culture returned showing Escherichia coli. She dislodged her IV on December 07. She will be continued on oral Macrobid for 2 additional days in swing bed. Hemoglobin decreased further to 6.6 with IV fluid administration. Anemia testing showed iron 10, transferrin saturation 3%, transferrin 253, ferritin 15 , B12 188, and folate 19.4. She was given a B12 injection and iron sucrose infusion. She was transfused 1 unit of packed red blood cells. Hemoglobin leeanne to 7.6 on December 07. Rapid ventricular response to atrial fibrillation resolved with administration of blood and IV fluids. Azotemia resolved with creatinine decreased to 0.82 by day of discharge in swing bed and estimated GFR greater than 60. On December 07 arrangements were complete for her to be transitioned to swing bed where she will continue to receive treatment including physical therapy and occupational therapy intervention. - Time Spent with Patient Total time spent providing and/or coordinating discharge services: - Discharge Medications Prescriptions: Nitrofurantoin (BID) [Macrobid] 100 mg PO BID 2 Days capsule Home Medications: Albuterol Sulfate [Albuterol Inhaler] 2.5 mg IH Q6HR 12/04/17 [History] Albuterol Sulfate [Proair Hfa] 1 puff IH Q4H PRN 12/04/17 [History] Apixaban [Eliquis] 5 mg PO BID 12/04/17 [History] Budesonide/Formoterol 160/4.5 [Symbicort 160/4.5] 2 puff IH BID 12/04/17 [ History] Bumetanide [Bumex] 1 mg PO DAILY 12/04/17 [History] Cholecalciferol (Vitamin D3) [Vitamin D3] 2,000 mg PO DAILY 12/04/17 [History] Donepezil HCl [Aricept] 10 mg PO DAILY 12/04/17 [History] Escitalopram [Lexapro] 20 mg PO DAILY 12/04/17 [History] Levothyroxine Sodium [Levoxyl] 75 mcg PO DAILY 12/04/17 [History] Raloxifene [Evista] 60 mg PO DAILY 12/04/17 [History] glipiZIDE [Glucotrol] 5 mg PO DAILY 12/04/17 [History] Cyanocobalamin (B-12) [Vitamin B12] 1,000 mcg PO DAILY tablet 12/07/17 [Rx] Lactobacillus [Culturelle] 1 each PO BID 2 Days cap.sprink 12/07/17 [Rx] Nitrofurantoin (BID) [Macrobid] 100 mg PO BID 2 Days capsule 12/07/17 [Rx] Allergies/Adverse Reactions: 3 Allergy/AdvReac Type Severity Reaction Status Date / Time Erythromycin Base Allergy Rash Verified 10/30/17 12:13 Penicillins Allergy Rash Verified 10/30/17 12:13 Sulfa (Sulfonamide Allergy Rash Verified 10/30/17 12:13 Antibiotics) Date of admission: 12/04/17 21:50 Primary care physician: Tiera Rojas CNP Consults: 12/05/17 00:07 Consult to Precision Jig Grinder [CONS] Routine Reason for SW Consult: Potential d/c needs. 12/07/17 09:59 Consult to Occupational Therapy [CONS] Routine Comment: Evaluate, develop and implement POC Reason for Consult: Weakness Does patient have active BEDREST order?: No Is patient medically & hemodynamically stable?: Yes Patient assessed for mobility or mobilized this visit?: Yes Consult to Physical Therapy [CONS] Routine Comment: Evaluate, develop and implement POC Reason for Consult: Weakness Does patient have active BEDREST order?: No Is patient medically & hemodynamically stable?: Yes Patient assessed for mobility or mobilized this visit?: Yes - Constitutional Vitals: Temp Pulse Resp BP Pulse Ox 99.4 F 68 18 97/57 68 12/07/17 11:47 12/07/17 11:47 12/07/17 11:47 12/07/17 11:47 12/07/17 11:47 - Patient Status Disposition: Transfer Hospital Swing Bed Condition: Fair - Discharge Instructions - Diet and Activity Activity: as per physical therapy Diet: diabetic diet
[2017-12-07 15:52] VITALS: BP 117/70
[2017-12-08] MEDS ORDERED: Cyanocobalamin (B-12) 1,000 MCG TABLET PO SCH (09:00)
== END 2017-12-07 17:07 | disposition other institution (70) | DRG 690 ==
LOC: INPPIK 19:50 → EMEROOPIK 19:50 → INPPIK 22:47
PROVIDERS: ADMIT Internal Medicine; ATTEND Internal Medicine

== ENCOUNTER 2017-12-07 15:06 | Inpatient (IN) ==
[2017-12-07] MEDS: Budesonide/Formoterol 160/4.5 MDI IH SCH (21:49)
[2017-12-07] MEDS: Lactobacillus 1 EACH CAP.SPRINK PO SCH (22:48)
[2017-12-07] MEDS: Apixaban 5 MG TABLET PO SCH (22:48)
[2017-12-07] MEDS: Nitrofurantoin (BID) 100 MG CAPSULE PO SCH (22:48)
[2017-12-08] MEDS ORDERED: Ondansetron ODT 4 MG TAB.RAPDIS SL PRN (01:28)
[2017-12-08] MEDS ORDERED: Dextrose Gel 15 GM/37.5 ML TUBE PO PRN ×2 (08:07)
[2017-12-08] MEDS ORDERED: *HR* Dextrose 50 % in Water (Syg) 50 ML SYRINGE IVP PRN (08:07)
[2017-12-08] MEDS ORDERED: D5% in Water 1,000 ML IVC PRN (08:07)
[2017-12-08] MEDS: Lactobacillus 1 EACH CAP.SPRINK PO SCH ×2 (09:12→21:33)
[2017-12-08] MEDS: Nitrofurantoin (BID) 100 MG CAPSULE PO SCH ×2 (09:12→21:33)
[2017-12-08] MEDS: *HR* GlipiZIDE 5 MG TABLET PO SCH (09:13)
[2017-12-08] MEDS: Cyanocobalamin (B-12) 1,000 MCG TABLET PO SCH (09:13)
[2017-12-08] MEDS: Apixaban 5 MG TABLET PO SCH ×2 (09:13→21:32)
[2017-12-08] MEDS: Cholecalciferol (D-3) 1,000 UNIT TABLET PO SCH (09:13)
[2017-12-08] MEDS: Bumetanide 1 MG TABLET PO SCH (09:14)
[2017-12-08] MEDS: Budesonide/Formoterol 160/4.5 MDI IH SCH ×2 (10:48→21:23)
--- NOTE | 2017-12-08 14:51 | Internal Med Progress Note ---
Date of Encounter: 12/08/17 Time of Encounter: 14:40 - Assessment and plan (1) CHF (congestive heart failure) Current Visit: No Status: Chronic Assessment and plan: December 08. Continue Bumex. BN peptide improved to 297 yesterday. Qualifiers: Heart failure type: diastolic Heart failure chronicity: chronic Qualified Code(s): I50.32 - Chronic diastolic (congestive) heart failure (2) Weakness Current Visit: No Status: Acute Assessment and plan: December 08. Continue therapy intervention. (3) B12 deficiency Current Visit: No Status: Suspected Assessment and plan: December 08. Continue oral B12 supplement. (4) Dementia Current Visit: No Status: Chronic Assessment and plan: December 08. Continue Aricept and B12. Qualifiers: Dementia type: unspecified type Dementia behavioral disturbance: without behavioral disturbance Qualified Code(s): F03.90 - Unspecified dementia without behavioral disturbance (5) Anemia Current Visit: No Status: Acute Assessment and plan: December 08. Will likely need repeat iron sucrose infusion. Continue oral B12 supplement. Qualifiers: Anemia type: unspecified type Qualified Code(s): D64.9 - Anemia, unspecified (6) Atrial fibrillation with RVR Current Visit: No Status: Acute Assessment and plan: December 08. Continue Eliquis. Will start Lanoxin to control RVR. (7) CKD (chronic kidney disease) stage 3, GFR 30-59 ml/min Current Visit: No Status: Acute Assessment and plan: December 08. Monitor renal indices as needed. - Subjective Interval history: December 08. She was hospitalized in acute-care December 04- after presenting with weakness and dizziness. She was found to have UTI and was given antibiotics which were continued into swing bed. Anemia testing showed findings consistent with B12 and iron deficiency and she received B12 injection and iron sucrose infusion. The RVR from atrial fibrillation resolved with blood transfusion and IV fluids. Azotemia resolved. MMSE showed score of 4/30. She was transitioned to swing bed for ongoing therapy interventions. She has no complaints today. - Constitutional Vitals: Temp Pulse Resp BP Pulse Ox 97.8 F 72 17 107/69 96 12/08/17 07:01 12/08/17 07:01 12/08/17 07:01 12/08/17 07:01 12/08/17 07:01 Exam: She is sitting in a chair at bedside resting comfortably. Her lower legs are cool to touch. There is trace edema of the lower anterior shins. Heart is irregularly irregular with rate approximately 116/m. Lungs are clear. I reviewed her medications and lab results. Consult Discharge Plan - Plan Referrals: Tiera Rojas, STREET ROLLER ENGINEER [Primary Care Provider] - 1 week
[2017-12-08] MEDS: *HR* Digoxin 0.125 MG TABLET PO SCH (17:26)
[2017-12-09 05:24] LABS: Basophils % 0.4 %; Eosinophils # 0.5 K/mcL (0.0-0.6); Hematocrit 30.8 % (35.3-44.9); Hemoglobin 8.8 g/dL (11.5-15.4); Immature Granulocytes % 0.3 % (0-4); Lymphocytes # 1.4 K/mcL (0.6-4.6); Lymphocytes % 20.4 %; Mean Corpuscular HGB Conc 28.6 g/dL (31.6-35.5); Mean Corpuscular Hemoglobin 22.3 pg (28.0-33.3); Mean Corpuscular Volume 78.2 fL (83.0-100.0); Mean Platelet Volume 9.9 fL (9.4-12.4); Monocytes # 0.4 K/mcL (0.0-1.3); Monocytes % 6.3 %; Neutrophils # 4.6 K/mcL (1.6-8.9); Platelet Count 206 K/mcL (140-400); Red Blood Count 3.94 M/mcL (3.82-4.97); Red Cell Distribution Width 19.1 % (11.5-14.5); Segmented Neutrophils % 65.6 %
[2017-12-09 06:21] LABS: Anisocytosis 2+ (Not Present)
[2017-12-09 06:22] LABS: Hypochromasia Present (Not Present); Microcytosis Present (Not Present); Platelet Estimate Normal (Normal); Poikilocytosis 1+ (Not Present); Polychromasia 1+ (Not Present)
[2017-12-09] MEDS: Cyanocobalamin (B-12) 1,000 MCG TABLET PO SCH (08:20)
[2017-12-09] MEDS: Bumetanide 1 MG TABLET PO SCH (08:20)
[2017-12-09] MEDS: *HR* Digoxin 0.125 MG TABLET PO SCH (08:20)
[2017-12-09] MEDS: Lactobacillus 1 EACH CAP.SPRINK PO SCH ×2 (08:20→20:49)
[2017-12-09] MEDS: Nitrofurantoin (BID) 100 MG CAPSULE PO SCH ×2 (08:20→20:49)
[2017-12-09] MEDS: *HR* GlipiZIDE 5 MG TABLET PO SCH (08:20)
[2017-12-09] MEDS: Apixaban 5 MG TABLET PO SCH ×2 (08:20→20:49)
[2017-12-09] MEDS: Budesonide/Formoterol 160/4.5 MDI IH SCH ×2 (10:30→21:47)
[2017-12-09] MEDS: Cholecalciferol (D-3) 1,000 UNIT TABLET PO SCH (17:39)
[2017-12-10] MEDS: *HR* Digoxin 0.125 MG TABLET PO SCH (08:19)
[2017-12-10] MEDS: Lactobacillus 1 EACH CAP.SPRINK PO SCH (08:19)
[2017-12-10] MEDS: *HR* GlipiZIDE 5 MG TABLET PO SCH (08:19)
[2017-12-10] MEDS: Bumetanide 1 MG TABLET PO SCH ×2 (08:20→19:56)
[2017-12-10] MEDS: Nitrofurantoin (BID) 100 MG CAPSULE PO SCH (08:20)
[2017-12-10] MEDS: Apixaban 5 MG TABLET PO SCH ×2 (08:20→20:36)
[2017-12-10] MEDS: Cholecalciferol (D-3) 1,000 UNIT TABLET PO SCH (08:20)
[2017-12-10] MEDS: Cyanocobalamin (B-12) 1,000 MCG TABLET PO SCH (08:20)
[2017-12-10] MEDS: Budesonide/Formoterol 160/4.5 MDI IH SCH ×2 (10:09→21:40)
--- NOTE | 2017-12-10 18:24 | Internal Med Progress Note ---
Date of Encounter: 12/10/17 Time of Encounter: 18:15 - Assessment and plan (1) CHF (congestive heart failure) Current Visit: No Status: Chronic Assessment and plan: December 08. Continue Bumex. BN peptide improved to 297 yesterday. December 10. Will increase Bumex and start Imdur with low-dose Toprol since she has symptomatic dyspnea. Qualifiers: Heart failure type: diastolic Heart failure chronicity: chronic Qualified Code(s): I50.32 - Chronic diastolic (congestive) heart failure (2) Weakness Current Visit: No Status: Acute Assessment and plan: December 08. Continue therapy intervention. (3) B12 deficiency Current Visit: No Status: Suspected Assessment and plan: December 08. Continue oral B12 supplement. (4) Dementia Current Visit: No Status: Chronic Assessment and plan: December 08. Continue Aricept and B12. Qualifiers: Dementia type: unspecified type Dementia behavioral disturbance: without behavioral disturbance Qualified Code(s): F03.90 - Unspecified dementia without behavioral disturbance (5) Anemia Current Visit: No Status: Acute Assessment and plan: December 08. Will likely need repeat iron sucrose infusion. Continue oral B12 supplement. December 10. Recheck CBC in a.m. Qualifiers: Anemia type: unspecified type Qualified Code(s): D64.9 - Anemia, unspecified (6) Atrial fibrillation with RVR Current Visit: No Status: Acute Assessment and plan: December 08. Continue Eliquis. Will start Lanoxin to control RVR. (7) CKD (chronic kidney disease) stage 3, GFR 30-59 ml/min Current Visit: No Status: Acute Assessment and plan: December 08. Monitor renal indices as needed. - Subjective Interval history: December 08. She was hospitalized in acute-care December 04- after presenting with weakness and dizziness. She was found to have UTI and was given antibiotics which were continued into swing bed. Anemia testing showed findings consistent with B12 and iron deficiency and she received B12 injection and iron sucrose infusion. The RVR from atrial fibrillation resolved with blood transfusion and IV fluids. Azotemia resolved. MMSE showed score of 4/30. She was transitioned to swing bed for ongoing therapy interventions. She has no complaints today. December 10. She has no new complaints. She denies pain but states she does feel dyspneic. - Constitutional Vitals: Temp Pulse Resp BP Pulse Ox 97.9 F 84 14 132/68 92 12/10/17 08:00 12/10/17 08:00 12/10/17 10:09 12/10/17 08:00 12/10/17 10:09 Exam: She is sitting in a chair at bedside resting comfortably. Her affect is cheerful. Heart is regular without murmurs gallops or ectopics. Lungs are clear. Extremities show 2-3+ edema bilaterally lower anterior hussein and dorsum of the feet. I reviewed her medications and lab results. Internal Medicine: Result - Labs CBC & Chem 7: 12/09/17 04:28 Consult Discharge Plan - Plan Referrals: Tiera Rojas, VETERINARY ASSISTANT [Primary Care Provider] - 1 week
[2017-12-10] MEDS: Isosorbide MONOnitrate (24 HR) 30 MG TAB.ER.24H PO SCH (19:56)
[2017-12-10] MEDS: Metoprolol XL (24 HR) Succ 25 MG TAB.ER.24H PO SCH (19:56)
[2017-12-11 07:12] LABS: Basophils % 0.6 %; Eosinophils # 0.5 K/mcL (0.0-0.6); Eosinophils % 6.8 %; Hematocrit 30.4 % (35.3-44.9); Hemoglobin 8.8 g/dL (11.5-15.4); Immature Granulocytes % 0.4 % (0-4); Lymphocytes # 1.4 K/mcL (0.6-4.6); Lymphocytes % 20.3 %; Mean Corpuscular HGB Conc 28.9 g/dL (31.6-35.5); Mean Corpuscular Hemoglobin 22.5 pg (28.0-33.3); Mean Corpuscular Volume 77.7 fL (83.0-100.0); Mean Platelet Volume 9.9 fL (9.4-12.4); Monocytes # 0.6 K/mcL (0.0-1.3); Monocytes % 7.8 %; Neutrophils # 4.5 K/mcL (1.6-8.9); Platelet Count 226 K/mcL (140-400); Red Blood Count 3.91 M/mcL (3.82-4.97); Red Cell Distribution Width 21.7 % (11.5-14.5); Segmented Neutrophils % 64.1 %
[2017-12-11 07:35] LABS: BUN/Creatinine Ratio 18 (6-26); Blood Urea Nitrogen 16 mg/dL (8-23); Calcium 8.9 mg/dL (8.6-10.3); Carbon Dioxide 32 mEq/L (23-29); Chloride 105 mEq/L (98-107); Digoxin 0.8 ng/mL (0.8-2.0); Glucose 155 mg/dL (70-105); Osmolality,Calculated 296 (280-300); Potassium 3.8 mEq/L (3.5-5.1); Sodium 141 mEq/L (136-145); eGFR For African Americans > 60 (> 60); eGFR For Non-African Americans 59 (> 60)
[2017-12-11 08:56] LABS: Anisocytosis 1+ (Not Present); Hypochromasia Present (Not Present)
[2017-12-11] MEDS: Bumetanide 1 MG TABLET PO SCH (09:11)
[2017-12-11] MEDS: Apixaban 5 MG TABLET PO SCH ×2 (09:11→21:21)
[2017-12-11] MEDS: Metoprolol XL (24 HR) Succ 25 MG TAB.ER.24H PO SCH (09:13)
[2017-12-11] MEDS: Cyanocobalamin (B-12) 1,000 MCG TABLET PO SCH (09:15)
[2017-12-11] MEDS: *HR* Digoxin 0.125 MG TABLET PO SCH (09:16)
[2017-12-11] MEDS: Isosorbide MONOnitrate (24 HR) 30 MG TAB.ER.24H PO SCH (09:16)
[2017-12-11] MEDS: *HR* GlipiZIDE 5 MG TABLET PO SCH (09:17)
[2017-12-11] MEDS: Cholecalciferol (D-3) 1,000 UNIT TABLET PO SCH (09:18)
[2017-12-11] MEDS: Budesonide/Formoterol 160/4.5 MDI IH SCH ×2 (11:31→21:59)
[2017-12-12] MEDS: Apixaban 5 MG TABLET PO SCH ×2 (10:06→21:32)
[2017-12-12] MEDS: Isosorbide MONOnitrate (24 HR) 30 MG TAB.ER.24H PO SCH (10:06)
[2017-12-12] MEDS: Metoprolol XL (24 HR) Succ 25 MG TAB.ER.24H PO SCH (10:06)
[2017-12-12] MEDS: Cholecalciferol (D-3) 1,000 UNIT TABLET PO SCH (10:06)
[2017-12-12] MEDS: *HR* GlipiZIDE 5 MG TABLET PO SCH (10:06)
[2017-12-12] MEDS: Cyanocobalamin (B-12) 1,000 MCG TABLET PO SCH (10:06)
[2017-12-12] MEDS: Bumetanide 1 MG TABLET PO SCH (10:06)
[2017-12-12] MEDS: *HR* Digoxin 0.125 MG TABLET PO SCH (10:07)
[2017-12-12] MEDS: Budesonide/Formoterol 160/4.5 MDI IH SCH ×2 (10:40→21:03)
--- NOTE | 2017-12-12 10:54 | Internal Med Progress Note ---
Date of Encounter: 12/12/17 Time of Encounter: 10:45 - Assessment and plan (1) CHF (congestive heart failure) Current Visit: No Status: Chronic Assessment and plan: December 08. Continue Bumex. BN peptide improved to 297 yesterday. December 10. Will increase Bumex and start Imdur with low-dose Toprol since she has symptomatic dyspnea. December 12. Improved. Continue present regimen. Anticipate discharge home 2017. Qualifiers: Heart failure type: diastolic Heart failure chronicity: chronic Qualified Code(s): I50.32 - Chronic diastolic (congestive) heart failure (2) Weakness Current Visit: No Status: Acute Assessment and plan: December 08. Continue therapy intervention. (3) B12 deficiency Current Visit: No Status: Suspected Assessment and plan: December 08. Continue oral B12 supplement. (4) Dementia Current Visit: No Status: Chronic Assessment and plan: December 08. Continue Aricept and B12. Qualifiers: Dementia type: unspecified type Dementia behavioral disturbance: without behavioral disturbance Qualified Code(s): F03.90 - Unspecified dementia without behavioral disturbance (5) Anemia Current Visit: No Status: Acute Assessment and plan: December 08. Will likely need repeat iron sucrose infusion. Continue oral B12 supplement. December 10. Recheck CBC in a.m. December 12. Hemoglobin stable at 8.8 on December 11. Continue present regimen. Qualifiers: Anemia type: unspecified type Qualified Code(s): D64.9 - Anemia, unspecified (6) Atrial fibrillation with RVR Current Visit: No Status: Acute Assessment and plan: December 08. Continue Eliquis. Will start Lanoxin to control RVR. December 12. Continue Eliquis, Toprol, and Lanoxin. (7) CKD (chronic kidney disease) stage 3, GFR 30-59 ml/min Current Visit: No Status: Acute Assessment and plan: December 08. Monitor renal indices as needed. - Subjective Interval history: December 08. She was hospitalized in acute-care December 04- after presenting with weakness and dizziness. She was found to have UTI and was given antibiotics which were continued into swing bed. Anemia testing showed findings consistent with B12 and iron deficiency and she received B12 injection and iron sucrose infusion. The RVR from atrial fibrillation resolved with blood transfusion and IV fluids. Azotemia resolved. MMSE showed score of 4/30. She was transitioned to swing bed for ongoing therapy interventions. She has no complaints today. December 10. She has no new complaints. She denies pain but states she does feel dyspneic. December 12. She has no complaints. She denies pain or dyspnea. - Constitutional Vitals: Temp Pulse Resp BP Pulse Ox 97.6 F 68 18 114/63 89 12/12/17 07:24 12/12/17 07:24 12/12/17 07:24 12/12/17 07:24 12/12/17 07:24 Exam: She is sitting in a chair at bedside resting comfortably. Her feet are elevated. There is decrease in the edema of the lower shins and dorsum of the feet. Her affect is bright and cheerful. I reviewed her medications and lab results. Internal Medicine: Result - Labs CBC & Chem 7: 12/11/17 06:30 12/11/17 06:30 Consult Discharge Plan - Plan Referrals: Tiera Rojas, BATCH TANK CONTROLLER [Primary Care Provider] - 1 week
[2017-12-13] MEDS: Bumetanide 1 MG TABLET PO SCH (08:58)
[2017-12-13] MEDS: *HR* GlipiZIDE 5 MG TABLET PO SCH (08:58)
[2017-12-13] MEDS: Cyanocobalamin (B-12) 1,000 MCG TABLET PO SCH (08:59)
[2017-12-13] MEDS: Cholecalciferol (D-3) 1,000 UNIT TABLET PO SCH (08:59)
[2017-12-13] MEDS: *HR* Digoxin 0.125 MG TABLET PO SCH (08:59)
[2017-12-13] MEDS: Isosorbide MONOnitrate (24 HR) 30 MG TAB.ER.24H PO SCH (08:59)
[2017-12-13] MEDS: Metoprolol XL (24 HR) Succ 25 MG TAB.ER.24H PO SCH (08:59)
[2017-12-13] MEDS: Apixaban 5 MG TABLET PO SCH ×2 (09:12→21:28)
[2017-12-13] MEDS: Budesonide/Formoterol 160/4.5 MDI IH SCH ×2 (10:40→22:00)
[2017-12-14] MEDS: Bumetanide 1 MG TABLET PO SCH (09:56)
[2017-12-14] MEDS: *HR* Digoxin 0.125 MG TABLET PO SCH (09:56)
[2017-12-14] MEDS: Isosorbide MONOnitrate (24 HR) 30 MG TAB.ER.24H PO SCH (09:56)
[2017-12-14] MEDS: *HR* GlipiZIDE 5 MG TABLET PO SCH (09:56)
[2017-12-14] MEDS: Cholecalciferol (D-3) 1,000 UNIT TABLET PO SCH (09:57)
[2017-12-14] MEDS: Metoprolol XL (24 HR) Succ 25 MG TAB.ER.24H PO SCH (09:58)
[2017-12-14] MEDS: Cyanocobalamin (B-12) 1,000 MCG TABLET PO SCH (09:58)
[2017-12-14] MEDS: Apixaban 5 MG TABLET PO SCH (10:04)
[2017-12-14 10:05] VITALS: BP 101/55
[2017-12-14] MEDS: Budesonide/Formoterol 160/4.5 MDI IH SCH (10:55)
--- NOTE | 2017-12-14 11:06 | Discharge Summary ---
Date of Encounter: 12/14/17 Time of Encounter: 10:55 - Discharge Diagnosis (1) CHF (congestive heart failure) Priority: Primary Status: Chronic Qualifiers: Heart failure type: diastolic Heart failure chronicity: chronic Qualified Code(s): I50.32 - Chronic diastolic (congestive) heart failure (2) Weakness Priority: Secondary Status: Acute (3) B12 deficiency Priority: Secondary Status: Suspected (4) Dementia Priority: Secondary Status: Chronic Qualifiers: Dementia type: unspecified type Dementia behavioral disturbance: without behavioral disturbance Qualified Code(s): F03.90 - Unspecified dementia without behavioral disturbance (5) Anemia Priority: Secondary Status: Acute Qualifiers: Anemia type: unspecified type Qualified Code(s): D64.9 - Anemia, unspecified (6) Atrial fibrillation with RVR Priority: Secondary Status: Acute (7) CKD (chronic kidney disease) stage 3, GFR 30-59 ml/min Priority: Secondary Status: Acute Hospital course: Ms. Benites is a 87 year old female who was hospitalized in acute-care December 04- after presenting with weakness and dizziness. She was found to have UTI and was given antibiotics which were continued into swing bed. Anemia testing showed findings consistent with B12 and iron deficiency and she received B12 injection and iron sucrose infusion. The RVR from atrial fibrillation resolved with blood transfusion and IV fluids. Azotemia resolved. MMSE showed score of 4/30. She was transitioned to swing bed for ongoing therapy interventions. She continued therapy interventions in swing bed and made satisfactory progress. She will have home health services ordered at discharge. Heart failure remained stable on Bumex, Toprol, Imdur, and Lanoxin. She will continue present regimen upon discharge. She was given iron sucrose during acute care stay. She will be given ferrous sulfate with vitamin C and oral B12 supplement at discharge. Her PCP can monitor her anemia. On December 14 she was stable for discharge home. She will follow with her PCP within 1 week. - Time Spent with Patient Total time spent providing and/or coordinating discharge services: - Discharge Medications Prescriptions: Digoxin [Lanoxin] 0.125 mg PO DAILY #30 tablet Isosorbide MONOnitrate (24 HR) [Imdur] 30 mg PO DAILY #30 tab.er.24h Metoprolol XL (24 HR) Succ [Toprol XL] 12.5 mg PO DAILY #15 tab.er.24h Home Medications: Albuterol Sulfate [Albuterol Inhaler] 2.5 mg IH Q6HR 12/04/17 [History] Albuterol Sulfate [Proair Hfa] 1 puff IH Q4H PRN 12/04/17 [History] Apixaban [Eliquis] 5 mg PO BID 12/04/17 [History] Budesonide/Formoterol 160/4.5 [Symbicort 160/4.5] 2 puff IH BID 12/04/17 [ History] Bumetanide [Bumex] 1 mg PO DAILY 12/04/17 [History] Cholecalciferol (Vitamin D3) [Vitamin D3] 2,000 mg PO DAILY 12/04/17 [History] Donepezil HCl [Aricept] 10 mg PO DAILY 12/04/17 [History] Escitalopram [Lexapro] 20 mg PO DAILY 12/04/17 [History] Levothyroxine Sodium [Levoxyl] 75 mcg PO DAILY 12/04/17 [History] Raloxifene [Evista] 60 mg PO DAILY 12/04/17 [History] glipiZIDE [Glucotrol] 5 mg PO DAILY 12/04/17 [History] Cyanocobalamin (B-12) [Vitamin B12] 1,000 mcg PO DAILY tablet 12/07/17 [Rx] Digoxin [Lanoxin] 0.125 mg PO DAILY #30 tablet 12/14/17 [Rx] Isosorbide MONOnitrate (24 HR) [Imdur] 30 mg PO DAILY #30 tab.er.24h 12/14/17 [ Rx] Metoprolol XL (24 HR) Succ [Toprol XL] 12.5 mg PO DAILY #15 tab.er.24h 12/14/17 [Rx] Allergies/Adverse Reactions: 3 Allergy/AdvReac Type Severity Reaction Status Date / Time Erythromycin Base Allergy Rash Verified 10/30/17 12:13 Penicillins Allergy Rash Verified 10/30/17 12:13 Sulfa (Sulfonamide Allergy Rash Verified 10/30/17 12:13 Antibiotics) Date of admission: 12/07/17 17:10 Primary care physician: Tiera Rojas CNP Consults: 12/08/17 07:52 Consult to Occupational Therapy [CONS] Routine Comment: evaluate, develop and implement POC Reason for Consult: Weakness Does patient have active BEDREST order?: No Is patient medically & hemodynamically stable?: Yes Patient assessed for mobility or mobilized this visit?: Yes Consult to Physical Therapy [CONS] Routine Comment: Evaluate, develop and implement POC Reason for Consult: Weakness Does patient have active BEDREST order?: No Is patient medically & hemodynamically stable?: Yes Patient assessed for mobility or mobilized this visit?: Yes Consult to Telephone Information Supervisor [CONS] Routine Reason for SW Consult: Potential discharge needs - Constitutional Vitals: Temp Pulse Resp BP Pulse Ox 98.2 F 64 16 101/55 94 12/14/17 07:07 12/14/17 07:07 12/14/17 07:07 12/14/17 07:07 12/13/17 22:00 - Patient Status Disposition: Home Health Service Functional capacity at discharge: uses cane/walker - Discharge Instructions Follow Up With: Tiera Rojas, RADIOLOGY AIDE [Primary Care Provider] - 1 week - Diet and Activity Activity: as per physical therapy Diet: diabetic diet
--- NOTE | 2017-12-14 11:22 | Physician Discharge Referral ---
Home Health/Hosp Referral Info Transfer to: Home Health Attending Provider: Dante Provider in Charge Post Discharge: PCP [place]) - Diagnosis (1) CHF (congestive heart failure) Priority: Primary Status: Chronic (2) Weakness Priority: Secondary Status: Acute (3) B12 deficiency Priority: Secondary Status: Suspected (4) Dementia Priority: Secondary Status: Chronic (5) Anemia Priority: Secondary Status: Acute (6) Atrial fibrillation with RVR Priority: Secondary Status: Acute (7) CKD (chronic kidney disease) stage 3, GFR 30-59 ml/min Priority: Secondary Status: Acute - Respiratory Orders Smoking Cessation: Smoking cessation has been advised. For more information, call the [place] Tobacco Quit Line at 6-039-JMOL-NOW. - Diet/Nutrition Diet/Nutrition Orders: No Concentrated Sweets - Activity Activity Orders: Walker - Services Needed Following services are medically necessary services: Nursing, Home Health Aide, Physical Therapy, Occupational Therapy - Transfer Medications Prescriptions: Ascorbic Acid [Vitamin C] 500 mg PO DAILY #30 tablet Cyanocobalamin (B-12) [Vitamin B12] 1,000 mcg PO DAILY #30 tablet Digoxin [Lanoxin] 0.125 mg PO DAILY #30 tablet Ferrous Sulfate 325 mg PO DAILY #30 tablet Isosorbide MONOnitrate (24 HR) [Imdur] 30 mg PO DAILY #30 tab.er.24h Metoprolol XL (24 HR) Succ [Toprol XL] 12.5 mg PO DAILY #15 tab.er.24h Home Medications: Albuterol Sulfate [Albuterol Inhaler] 2.5 mg IH Q6HR 12/04/17 [History] Albuterol Sulfate [Proair Hfa] 1 puff IH Q4H PRN 12/04/17 [History] Apixaban [Eliquis] 5 mg PO BID 12/04/17 [History] Budesonide/Formoterol 160/4.5 [Symbicort 160/4.5] 2 puff IH BID 12/04/17 [ History] Bumetanide [Bumex] 1 mg PO DAILY 12/04/17 [History] Cholecalciferol (Vitamin D3) [Vitamin D3] 2,000 mg PO DAILY 12/04/17 [History] Donepezil HCl [Aricept] 10 mg PO DAILY 12/04/17 [History] Escitalopram [Lexapro] 20 mg PO DAILY 12/04/17 [History] Levothyroxine Sodium [Levoxyl] 75 mcg PO DAILY 12/04/17 [History] Raloxifene [Evista] 60 mg PO DAILY 12/04/17 [History] glipiZIDE [Glucotrol] 5 mg PO DAILY 12/04/17 [History] Cyanocobalamin (B-12) [Vitamin B12] 1,000 mcg PO DAILY tablet 12/07/17 [Rx] Ascorbic Acid [Vitamin C] 500 mg PO DAILY #30 tablet 12/14/17 [Rx] Cyanocobalamin (B-12) [Vitamin B12] 1,000 mcg PO DAILY #30 tablet 12/14/17 [Rx] Digoxin [Lanoxin] 0.125 mg PO DAILY #30 tablet 12/14/17 [Rx] Ferrous Sulfate 325 mg PO DAILY #30 tablet 12/14/17 [Rx] Isosorbide MONOnitrate (24 HR) [Imdur] 30 mg PO DAILY #30 tab.er.24h 12/14/17 [ Rx] Metoprolol XL (24 HR) Succ [Toprol XL] 12.5 mg PO DAILY #15 tab.er.24h 12/14/17 [Rx] Allergies/Adverse Reactions: 3 Allergy/AdvReac Type Severity Reaction Status Date / Time Erythromycin Base Allergy Rash Verified 10/30/17 12:13 Penicillins Allergy Rash Verified 10/30/17 12:13 Sulfa (Sulfonamide Allergy Rash Verified 10/30/17 12:13 Antibiotics) Certification: Further, I certify that my clinical findings support that this patient is homebound (i.e. absences from home require considerable and taxing effort and are for medical reasons or gnosticism services or infrequently or short duration when for other reasons) because: Homebound Reason: Leaving home requires considerable and taxing effort due to condition (Limited mobility with congestive heart failure and dementia.) Attestation: My signature below is to certify that this patient is under my care and that I, or nurse practitioner, or a physician's program services assistant working with me, has a face-to -face encounter with this patient.
== END 2017-12-14 12:15 | disposition home health service (06) | DRG 945 ==
LOC: INPPIK 17:10
PROVIDERS: ADMIT Internal Medicine; ATTEND Internal Medicine